=== PATIENT | female | born 1955 | race Caucasian/White ===

== ENCOUNTER 2016-12-01 04:46 | Emergency (ER) | payer OTHER ==
[2016-12-01 05:26] LABS: BASOPHIL 1.4 % (0-2); EOSINOPHIL 2.9 % (0-5); HCT 45.4 % (37.0-47.0); HGB 15.4 g/dl (12.5-16.0); MCH 30.1 pg (25.0-31.0); MCHC 33.9 g/dL (32.0-36.0); MCV 88.8 fL (78.0-100.0); MONOCYTE 5.2 % (0-12); MPV 10.7 fL (6.0-9.5); NEUTROPHIL 60.5 % (41-80); PLT 162 K/uL (150-400); RBC 5.11 M/uL (4.20-5.40)
[2016-12-01 05:42] LABS: INR 0.94 (0.9-1.2); PROTHROMBIN TIME 12.2 SECONDS (11.7-14.0); PTT 23.4 SECONDS (23.2-31.4)
[2016-12-01 05:50] LABS: BILIRUBIN - TOTAL 0.3 mg/dL (0.1-1.0); CREATININE 0.9 mg/dL (0.5-1.0); MAGNESIUM 2.16 mg/dL (1.40-2.10); MYOGLOBIN 36 ng/mL (26-65); POTASSIUM 4.3 mmol/L (3.5-5.1); PRO-BNP 10 pg/mL (0-125); TROPONIN T < 0.010 ng/mL
== END 2016-12-01 09:21 | disposition home or self-care (01) ==
LOC: FER 04:46
PROVIDERS: Emergency Medicine
DX: R07.9 Chest pain, unspecified (principal); I10 Essential (primary) hypertension
CPT/HCPCS: 36415; 71010; 71275; 80053; 82550; 82553; 83735; 83874; 83880; 84484; 85025; 85610; 85730; 93005; J2270; Q9967